=== PATIENT | male | born 1985 | race Caucasian/White ===

== ENCOUNTER 2019-05-29 16:56 | Emergency (ER) | payer SELFPAY ==
--- NOTE | 2019-05-29 17:05 | Event Note ---
ED Screening Note Date of service: 05/29/19 Time: 17:03 ED Screening Note: 33 y/o male comes in for Chronic back pain. History of lumbar pain with ridiculopathy. This initial assessment/diagnostic orders/clinical plan/treatment(s) is/are subject to change based on patients health status, clinical progression and re- assessment by fellow clinical providers in the ED. Further treatment and workup at subsequent clinical providers discretion. Patient/guardian urged not to elope from the ED as their condition may be serious if not clinically assessed and managed. Initial orders include:
[2019-05-29] MEDS ORDERED: TORADOL ONE (18:33)
[2019-05-29] MEDS ORDERED: TORADOL IM ONE (19:03)
--- NOTE | 2019-05-29 19:10 | Emergency Department Report ---
ED Back Pain/Injury HPI - General Chief Complaint: Back Pain/Injury Stated Complaint: LUMBAR PAIN Source: patient Limitations: No Limitations - History of Present Illness Initial Comments: Patient is a 33-year-old male who presents to the emergency room with chronic left back pain since 2017. He states it is in his left back, left gluteus, and radiates down his left leg. he states that he has been working more and playing with his sons and believes he aggravated it. the patient states he has a hx of sciatica. he denies any new fall or injury. he does not report any numbness, weakness, or bowel/bladder incontinence. he states his only allergy is PCN. - Related Data Previous Rx's Medication Instructions Recorded Last Taken Type Cyclobenzaprine [Flexeril] 10 mg PO QHS PRN #12 tablet 05/29/19 Unknown Rx Naproxen [Naprosyn] 500 mg PO BID PRN #24 tablet 05/29/19 Unknown Rx predniSONE [Deltasone] 40 mg PO QDAY 7 Days #14 tab 05/29/19 Unknown Rx Allergies Allergy/AdvReac Type Severity Reaction Status Date / Time Penicillins Allergy Anaphylaxis Verified 05/29/19 18:52 ED Review of Systems ROS: Stated complaint: LUMBAR PAIN Other details as noted in HPI Comment: All other systems reviewed and negative ED Past Medical Hx - Social History Smoking Status: Current Every Day Smoker Substance Use Type: None - Medications Home Medications: Home Medications Medication Instructions Recorded Confirmed Last Taken Type Cyclobenzaprine [Flexeril] 10 mg PO QHS PRN #12 tablet 05/29/19 Unknown Rx Naproxen [Naprosyn] 500 mg PO BID PRN #24 tablet 05/29/19 Unknown Rx predniSONE [Deltasone] 40 mg PO QDAY 7 Days #14 tab 05/29/19 Unknown Rx ED Physical Exam - General Limitations: No Limitations General appearance: alert, in no apparent distress - Head Head exam: Present: atraumatic, normocephalic - Eye Eye exam: Present: normal appearance - ENT ENT exam: Present: mucous membranes moist - Neck Neck exam: Present: normal inspection, full ROM. Absent: tenderness - Respiratory Respiratory exam: Present: normal lung sounds bilaterally. Absent: respiratory distress, wheezes, rales, rhonchi, stridor, chest wall tenderness, accessory muscle use, decreased breath sounds, prolonged expiratory - Cardiovascular Cardiovascular Exam: Present: regular rate, normal rhythm, normal heart sounds. Absent: systolic murmur, diastolic murmur, rubs, gallop - Back Exam Back exam: Present: normal inspection, full ROM, paraspinal tenderness (left lumbar paraspinal muscular TTP, no midline C-spine, T-spine or L-spine tenderness, no step offs, no deformities). Absent: vertebral tenderness - Neurological Exam Neurological exam: Present: alert, oriented X3, CN II-XII intact, normal gait. Absent: motor sensory deficit - Psychiatric Psychiatric exam: Present: normal affect, normal mood - Skin Skin exam: Present: warm, dry, intact ED Course Vital Signs 05/29/19 05/29/19 05/29/19 17:02 19:05 19:25 Temperature 98.0 F Pulse Rate 90 84 Respiratory 16 18 16 Rate Blood Pressure 116/84 Blood Pressure 122/84 [Right] O2 Sat by Pulse 100 99 Oximetry 05/29/19 19:35 Temperature Pulse Rate 84 Respiratory 16 Rate Blood Pressure Blood Pressure 122/84 [Right] O2 Sat by Pulse 99 Oximetry ED Medical Decision Making - Medical Decision Making Patient is a 33-year-old male who presents to the emergency room with chronic left back pain since 2017. He states it is in his left back, left gluteus, and radiates down his left leg. he states that he has been working more and playing with his sons and believes he aggravated it. the patient states he has a hx of sciatica. he denies any new fall or injury. he does not report any numbness, weakness, or bowel/bladder incontinence. he states his only allergy is PCN. on exam: left lumbar paraspinal muscular TTP, no midline C-spine, T-spine or L- spine tenderness, no step offs, no deformities, no focal neuro deficit. pts discomfort treated with toradol while in the ED. pt given prescription for naproxen, steroids, and flexeril. advised to please take medication as prescribed. do not drive or operate heavy machinery while taking muscle relaxer. please do stretches for sciatica. follow up with a primary care doctor in the next 2-3 days. return to the emergency room for any new or worsening symptoms. - Differential Diagnosis sciatica, chronic back pain, DDD, herniated disc, spondylolysis Critical care attestation.: If time is entered above; I have spent that time in minutes in the direct care of this critically ill patient, excluding procedure time. ED Disposition Clinical Impression: Chronic back pain Qualifiers: Back pain location: low back pain Back pain laterality: left Sciatica presence: with sciatica Sciatica laterality: sciatica of left side Qualified Code(s): M54.42 - Lumbago with sciatica, left side Disposition: TO HOME OR SELFCARE Is pt being admited?: No Does the pt Need Aspirin: No Condition: Stable Instructions: Sciatica (ED), Chronic Back Pain (ED) Additional Instructions: Please take medication as prescribed. do not drive or operate heavy machinery while taking muscle relaxer. please do stretches for sciatica. follow up with a primary care doctor in the next 2-3 days. return to the emergency room for any new or worsening symptoms. Prescriptions: Cyclobenzaprine [Flexeril] 10 mg PO QHS PRN #12 tablet PRN Reason: Muscle Spasm predniSONE [Deltasone] 40 mg PO QDAY 7 Days #14 tab Naproxen [Naprosyn] 500 mg PO BID PRN #24 tablet PRN Reason: Pain, Moderate (4-6) Referrals: [facility] [Outside] - 2-3 Days [facility] [Provider Group] - 2-3 Days [facility] [place] [Outside] - 2-3 Days Time of Disposition: 19:11 Print Language: THAI
[2019-05-29 19:36] VITALS: BP 122/84
== END 2019-05-29 20:36 | disposition home or self-care (01) ==
LOC: ED 16:56
DX: M54.9 Dorsalgia, unspecified (principal); G89.29 Other chronic pain; F17.200 Nicotine dependence, unspecified, uncomplicated; Z79.899 Other long term (current) drug therapy; Z88.0 Allergy status to penicillin
CPT/HCPCS: 96372; 99282; J1885